=== PATIENT | female | born 1970 | race American Indian/Alaskan Native ===

== ENCOUNTER 2016-03-05 15:03 | Inpatient (IN) | payer OTHER ==
--- NOTE | 2016-03-05 17:26 | Emergency Department Report ---
Chief Complaint: Chest Pain Stated Complaint: CHEST PAIN,SOB/DIZZY Time Seen by Provider: 03/05/16 17:18 - HPI History of Present Illness: 45-year-old female comes in for complaint of chest pain shortness of bradycardia and blurred vision nausea and gone on for about 3 weeks is progressively getting worse. - Exam Vital Signs: Vital Signs 03/05/16 15:43 Temperature 98.3 F Pulse Rate 121 H Respiratory 20 Rate Blood Pressure 122/58 O2 Sat by Pulse 99 Oximetry Physical Exam: Patient alert and oriented 3 cardiovascular tachycardic S1-S2 respiratory she is clear to auscultation bilateral abdomen soft nontender nondistended MSE screening note: Focused history and physical exam performed. Due to findings the following was ordered: Chest pain protocol ordered patient be evaluated in the main ER ED Disposition for MSE Condition: Stable
[2016-03-05 18:25] LABS: Mean Corpuscular HGB Conc 25 % (30-34); Red Blood Count 2.75 M/mm3 (3.65-5.03); White Blood Count 5.2 K/mm3 (4.5-11.0)
[2016-03-05 18:37] LABS: Hemoglobin 3.8 gm/dl (10.1-14.3)
[2016-03-05 18:38] LABS: Hematocrit 14.9 % (30.3-42.9); Mean Corpuscular Hemoglobin 14 pg (28-32); Mean Corpuscular Volume 54 fl (79-97); Red Cell Distribution Width 23.2 % (13.2-15.2)
[2016-03-05 18:52] LABS: Alanine Aminotransferase 7 units/L (7-56); Albumin 3.8 g/dL (3.9-5); Albumin/Globulin Ratio 1.2 %; Alkaline Phosphatase 63 units/L (35-129); Anion Gap 17 mmol/L; BUN/Creatinine Ratio 16.66; Bilirubin,Total 0.3 mg/dL (0.1-1.2); Blood Urea Nitrogen 10 mg/dL (7-17); Calcium 8.3 mg/dL (8.4-10.2); Carbon Dioxide 22 mmol/L (22-30); Chloride 103.1 mmol/L (98-107); Creatine Kinase 51 units/L (30-135); Glucose 94 mg/dL (65-100); Lipase 21 units/L (13-60); Potassium 3.8 mmol/L (3.6-5.0); Sodium 138 mmol/L (137-145); Total Protein 7.1 g/dL (6.3-8.2)
[2016-03-05 18:58] LABS: Bilirubin,Direct < 0.2 mg/dL (0-0.2); Bilirubin,Indirect 0.1 mg/dL
[2016-03-05 18:59] LABS: Creatine Kinase MB < 1.0 ng/mL (0.0-4.0)
[2016-03-05] MEDS ORDERED: NACL 0.9% 500 ML 500 ML IV ONE ×2 (19:56→23:41)
[2016-03-05 20:03] LABS: Basophils % (Manual) 0 % (0.0-1.8); Blastocytes % (Manual) 0 %; Hypochromasia 3+
[2016-03-05 20:04] LABS: Elliptocytes 1+; Large Platelets 1+; Microcytosis 2+; Ovalocytes 1+
--- NOTE | 2016-03-05 20:04 | Emergency Department Report ---
ED General Adult HPI - General Chief complaint: Chest Pain Stated complaint: CHEST PAIN,SOB/DIZZY Time Seen by Provider: 03/05/16 17:18 Source: patient, RN notes reviewed, old records reviewed Mode of arrival: Ambulatory Limitations: No Limitations - History of Present Illness Initial comments: This is a 45-year-old female, previously unknown to me. Has a past medical history dysfunction uterine bleeding, possible fibroids, has required packed red blood cell transfusion in the past. The patient presents to the ER complaining of headache, chest pain, blurry vision, shortness of breath and weakness. Her symptoms are similar to prior episodes of symptomatic anemia. She has been vaginally bleeding for weeks. She is not . She has no hematemesis or bright red blood per rectum. She reports that she is not . -: Gradual, week(s) Location: head, chest Severity scale (0 -10): 7 Quality: aching Consistency: constant Improves with: rest Worsens with: movement Associated Symptoms: chest pain, loss of appetite, shortness of breath, weakness - Related Data Previous Rx's Medication Instructions Recorded Last Taken Type Ferrous Sulfate [Feosol 325 MG tab] 325 mg PO BID #60 tablet 03/16/15 Unknown Rx Allergies Allergy/AdvReac Type Severity Reaction Status Date / Time peanut Allergy Unknown Verified 12/29/14 18:57 soy Allergy Swelling Verified 03/15/15 23:27 squash Allergy Unknown Verified 12/29/14 18:57 zucchini Allergy Unknown Uncoded 12/29/14 18:57 ED Review of Systems ROS: Stated complaint: CHEST PAIN,SOB/DIZZY Other details as noted in HPI Constitutional: malaise, weakness Eyes: denies: vision change ENT: denies: epistaxis Respiratory: shortness of breath Cardiovascular: chest pain Gastrointestinal: denies: abdominal pain Genitourinary: abnormal menses Musculoskeletal: denies: back pain Skin: denies: lesions Neurological: weakness Psychiatric: as per HPI ED Past Medical Hx - Past Medical History Hx Hypertension: No Hx Heart Attack/AMI: No (Parents and one brother) Hx Congestive Heart Failure: No Hx Diabetes: No Hx Deep Vein Thrombosis: No Hx Pulmonary Embolism: No Hx GERD: No Hx Liver Disease: No Hx Renal Disease: No Hx Sickle Cell Disease: No Hx Arthritis: No Hx Headaches / Migraines: Yes Hx Seizures: No Hx Kidney Stones: No Hx Asthma: No Hx COPD: No Hx Tuberculosis: No Hx Dementia: No Hx HIV: No Additional medical history: Blood clots, HPV - Surgical History Hx Coronary Stent: No Hx Open Heart Surgery: No Hx Pacemaker: No Hx Internal Defibrillator: No Hx Cholecystectomy: No Hx Appendectomy: Yes Hx Breast Surgery: No Additional Surgical History: - Social History Smoking Status: Never Smoker Substance Use Type: None - Medications Home Medications: Home Medications Medication Instructions Recorded Confirmed Last Taken Type Ferrous Sulfate [Feosol 325 MG tab] 325 mg PO BID #60 tablet 03/16/15 03/05/16 Unknown Rx ED Physical Exam - General Limitations: No Limitations General appearance: alert, in no apparent distress - Head Head exam: Present: atraumatic, normocephalic - Eye Eye exam: Present: normal appearance, other (b/l pale conjunctiva) - ENT ENT exam: Present: normal exam, normal orophraynx, mucous membranes moist - Neck Neck exam: Present: normal inspection, full ROM. Absent: tenderness, meningismus - Respiratory Respiratory exam: Present: normal lung sounds bilaterally. Absent: respiratory distress, wheezes, rales, rhonchi, stridor, chest wall tenderness - Cardiovascular Cardiovascular Exam: Present: normal rhythm, tachycardia, normal heart sounds. Absent: bradycardia, systolic murmur, diastolic murmur, rubs, gallop - GI/Abdominal GI/Abdominal exam: Present: soft, normal bowel sounds. Absent: distended, tenderness, guarding, rebound, rigid, pulsatile mass - Extremities Exam Extremities exam: Present: normal inspection, full ROM, normal capillary refill. Absent: tenderness, pedal edema, joint swelling, calf tenderness - Back Exam Back exam: Present: normal inspection, full ROM. Absent: tenderness, CVA tenderness (R), CVA tenderness (L), muscle spasm, paraspinal tenderness, vertebral tenderness - Neurological Exam Neurological exam: Present: alert, oriented X3, other (Extraocular movements intact. Tongue midline. No facial droop. Facial sensation intact to light touch in the V1, V2, V3 distribution bilaterally. 5 and 5 strength in 4 extremities.. Sensation is intact to light touch in 4 extremities.). Absent: motor sensory deficit - Psychiatric Psychiatric exam: Present: anxious - Skin Skin exam: Present: warm, dry, intact, normal color. Absent: rash ED Course Vital Signs 03/05/16 03/05/16 03/05/16 15:43 16:52 19:04 Temperature 98.3 F Pulse Rate 121 H Respiratory 20 Rate Blood Pressure 122/58 109/55 109/55 O2 Sat by Pulse 99 84 Oximetry 03/05/16 03/05/16 03/05/16 19:45 20:00 21:00 Temperature 97.8 F Pulse Rate 92 H Respiratory 20 17 14 Rate Blood Pressure 126/62 120/57 O2 Sat by Pulse 100 100 99 Oximetry 03/05/16 03/05/16 03/05/16 21:28 21:43 22:13 Temperature 97.8 F 97.9 F 97.8 F Pulse Rate 94 H 96 H Respiratory 20 14 Rate Blood Pressure 140/73 121/65 O2 Sat by Pulse 100 100 Oximetry - Reevaluation(s) Reevaluation #1: 03/05/16 20:47 Differential diagnosis: Symptomatic anemia, acute coronary syndrome, dysfunctional uterine bleeding Assessment and plan: 45-year-old female with profound symptomatic anemia, chest discomfort, blurry vision, generalized weakness. She is tachycardic, and requires packed red blood cell transfusion. Case was discussed with the covering supervisor salvage, Dr. Anderson, who requested hospital/medical team admit the patient given history of chest pain, states he will follow as a consult. Patient is ordered for 3 units of packed red blood cells. Patient had a pelvic ultrasound last year, which demonstrated most likely fibroids. She is afebrile, not vomiting blood, not , I think that most likely reason for her symptoms is her profound symptomatically anemia. The case is discussed with the Hospital physician, Dr. Hancock, who graciously accepts the patient to her service. 03/06/16 02:39 ED Medical Decision Making - Lab Data Result diagrams: 03/05/16 17:45 03/05/16 19:42 Vital Signs 03/05/16 03/05/16 03/05/16 15:43 16:52 19:04 Temperature 98.3 F Pulse Rate 121 H Respiratory 20 Rate Blood Pressure 122/58 109/55 109/55 O2 Sat by Pulse 99 84 Oximetry 03/05/16 03/05/16 19:45 20:00 Temperature 97.8 F Pulse Rate 92 H Respiratory 20 18 Rate Blood Pressure 126/62 O2 Sat by Pulse 100 100 Oximetry Lab Results 03/05/16 03/05/16 03/05/16 Range/Units 17:45 17:45 19:42 WBC 5.2 (4.5-11.0) K/mm3 RBC 2.75 L (3.65-5.03) M/mm3 Hgb 3.8 L* (10.1-14.3) gm/dl Hct 14.9 L* (30.3-42.9) % MCV 54 L (79-97) fl MCH 14 L (28-32) pg MCHC 25 L (30-34) % RDW 23.2 H (13.2-15.2) % Plt Count 278 (140-440) K/mm3 Add Manual Diff Complete Total Counted 100 Seg Neuts % (Manual) 61.0 (40.0-70.0) % Band Neutrophils % 0 % Lymphocytes % (Manual) 31.0 (13.4-35.0) % Reactive Lymphs % (Man) 2.0 % Monocytes % (Manual) 5.0 (0.0-7.3) % Eosinophils % (Manual) 1.0 (0.0-4.3) % Basophils % (Manual) 0 (0.0-1.8) % Metamyelocytes % 0 % Myelocytes % 0 % Promyelocytes % 0 % Blast Cells % 0 % Nucleated RBC % 2.0 H (0.0-0.9) % Seg Neutrophils # Man 3.2 (1.8-7.7) K/mm3 Band Neutrophils # 0.0 K/mm3 Lymphocytes # (Manual) 1.6 (1.2-5.4) K/mm3 Abs React Lymphs (Man) 0.1 K/mm3 Monocytes # (Manual) 0.3 (0.0-0.8) K/mm3 Eosinophils # (Manual) 0.1 (0.0-0.4) K/mm3 Basophils # (Manual) 0.0 (0.0-0.1) K/mm3 Metamyelocytes # 0.0 K/mm3 Myelocytes # 0.0 K/mm3 Promyelocytes # 0.0 K/mm3 Blast Cells # 0.0 K/mm3 WBC Morphology Not Reportable Hypersegmented Neuts Not Reportable Hyposegmented Neuts Not Reportable Hypogranular Neuts Not Reportable Smudge Cells Not Reportable Toxic Granulation Not Reportable Toxic Vacuolation Not Reportable Dohle Bodies Not Reportable Pelger-Huet Anomaly Not Reportable Robert Rods Not Reportable Platelet Estimate Consistent w auto Clumped Platelets 1+ Plt Clumps, EDTA Not Reportable Large Platelets 1+ Giant Platelets Not Reportable Platelet Satelliting Not Reportable Plt Morphology Comment Not Reportable RBC Morphology Not Reportable Dimorphic RBCs Not Reportable Polychromasia Not Reportable Hypochromasia 3+ Poikilocytosis Not Reportable Anisocytosis Not Reportable Microcytosis 2+ Macrocytosis Not Reportable Spherocytes Not Reportable Pappenheimer Bodies Not Reportable Sickle Cells Not Reportable Target Cells Not Reportable Tear Drop Cells Rare Ovalocytes 1+ Helmet Cells Not Reportable [place] Bodies Not Reportable Mercer Rings Not Reportable [place] Cells Not Reportable Bite Cells Not Reportable Crenated Cell Not Reportable Elliptocytes 1+ Acanthocytes (Spur) Not Reportable Rouleaux Not Reportable Hemoglobin C Crystals Not Reportable Schistocytes Not Reportable Malaria parasites Not Reportable Beck Bodies Not Reportable Hem Pathologist Commnt No Sodium 138 140 (137-145) mmol/L Potassium 3.8 4.3 (3.6-5.0) mmol/L Chloride 103.1 103.9 (98-107) mmol/L Carbon Dioxide 22 19 L (22-30) mmol/L Anion Gap 17 21 mmol/L BUN 10 10 (7-17) mg/dL Creatinine 0.6 L 0.6 L (0.7-1.2) mg/dL Estimated GFR > 60 > 60 ml/min BUN/Creatinine Ratio 16.66 16.66 % Glucose 94 95 (65-100) mg/dL Calcium 8.3 L 8.3 L (8.4-10.2) mg/dL Total Bilirubin 0.3 (0.1-1.2) mg/dL Direct Bilirubin < 0.2 (0-0.2) mg/dL Indirect Bilirubin 0.1 mg/dL AST 12 (5-40) units/L ALT 7 (7-56) units/L Alkaline Phosphatase 63 (35-129) units/L Total Creatine Kinase 51 (30-135) units/L CK-MB (CK-2) < 1.0 (0.0-4.0) ng/mL CK-MB (CK-2) Rel Index 1.9 (0-4) Troponin T < 0.010 < 0.010 (0.00-0.029) ng/mL Total Protein 7.1 (6.3-8.2) g/dL Albumin 3.8 L (3.9-5) g/dL Albumin/Globulin Ratio 1.2 % Lipase 21 (13-60) units/L HCG, Quant (0-4) mIU/mL Blood Type Crossmatch 03/05/16 03/05/16 Range/Units 19:42 19:42 WBC (4.5-11.0) K/mm3 RBC (3.65-5.03) M/mm3 Hgb (10.1-14.3) gm/dl Hct (30.3-42.9) % MCV (79-97) fl MCH (28-32) pg MCHC (30-34) % RDW (13.2-15.2) % Plt Count (140-440) K/mm3 Add Manual Diff Total Counted Seg Neuts % (Manual) (40.0-70.0) % Band Neutrophils % % Lymphocytes % (Manual) (13.4-35.0) % Reactive Lymphs % (Man) % Monocytes % (Manual) (0.0-7.3) % Eosinophils % (Manual) (0.0-4.3) % Basophils % (Manual) (0.0-1.8) % Metamyelocytes % % Myelocytes % % Promyelocytes % % Blast Cells % % Nucleated RBC % (0.0-0.9) % Seg Neutrophils # Man (1.8-7.7) K/mm3 Band Neutrophils # K/mm3 Lymphocytes # (Manual) (1.2-5.4) K/mm3 Abs React Lymphs (Man) K/mm3 Monocytes # (Manual) (0.0-0.8) K/mm3 Eosinophils # (Manual) (0.0-0.4) K/mm3 Basophils # (Manual) (0.0-0.1) K/mm3 Metamyelocytes # K/mm3 Myelocytes # K/mm3 Promyelocytes # K/mm3 Blast Cells # K/mm3 WBC Morphology Hypersegmented Neuts Hyposegmented Neuts Hypogranular Neuts Smudge Cells Toxic Granulation Toxic Vacuolation Dohle Bodies Pelger-Huet Anomaly Robert Rods Platelet Estimate Clumped Platelets Plt Clumps, EDTA Large Platelets Giant Platelets Platelet Satelliting Plt Morphology Comment RBC Morphology Dimorphic RBCs Polychromasia Hypochromasia Poikilocytosis Anisocytosis Microcytosis Macrocytosis Spherocytes Pappenheimer Bodies Sickle Cells Target Cells Tear Drop Cells Ovalocytes Helmet Cells [place] Bodies Mercer Rings Maxime Cells Bite Cells Crenated Cell Elliptocytes Acanthocytes (Spur) Rouleaux Hemoglobin C Crystals Schistocytes Malaria parasites Beck Bodies Hem Pathologist Commnt Sodium (137-145) mmol/L Potassium (3.6-5.0) mmol/L Chloride (98-107) mmol/L Carbon Dioxide (22-30) mmol/L Anion Gap mmol/L BUN (7-17) mg/dL Creatinine (0.7-1.2) mg/dL Estimated GFR ml/min BUN/Creatinine Ratio % Glucose (65-100) mg/dL Calcium (8.4-10.2) mg/dL Total Bilirubin (0.1-1.2) mg/dL Direct Bilirubin (0-0.2) mg/dL Indirect Bilirubin mg/dL AST (5-40) units/L ALT (7-56) units/L Alkaline Phosphatase (35-129) units/L Total Creatine Kinase (30-135) units/L CK-MB (CK-2) (0.0-4.0) ng/mL CK-MB (CK-2) Rel Index (0-4) Troponin T (0.00-0.029) ng/mL Total Protein (6.3-8.2) g/dL Albumin (3.9-5) g/dL Albumin/Globulin Ratio % Lipase (13-60) units/L HCG, Quant < 2 (0-4) mIU/mL Blood Type O POSITIVE Crossmatch See Detail - EKG Data When compared to previous EKG there are: no significant change 03/05/16 20:49 Sinus tachycardia, 101 bpm, normal intervals, normal axis, not morphologically consistent with STEMI. When compared to old EKG from December 2014, numerous T-wave abnormalities have since resolved. I will defer to the inpatient team to further evaluate this. Troponins are negative 2. With severe symptomatic anemia, as demonstrated by laboratory studies, I think it is unlikely that the patient has concomitant acute coronary syndrome. - Radiology Data Radiology results: image reviewed interpreted by me: XR CHEST NEGATIVE Critical Care Time: Yes Critical care time in (mins) excluding proc time.: 35 Critical care attestation.: If time is entered above; I have spent that time in minutes in the direct care of this critically ill patient, excluding procedure time. Critical Care Time: Critical care time includes multiple bedside evaluations, interpretation of laboratory studies, previous radiology studies, time spent managing a critically ill patient with severe symptomatic anemia requiring packed red blood cell transfusion, consultation with gynecology, consultation with hospital medicine. This excludes procedure time. ED Disposition Clinical Impression: Anemia, Dysfunctional uterine bleeding Disposition: OP ADMITTED IP TO THIS HOSP Is pt being admited?: Yes Condition: Stable
[2016-03-05 20:05] LABS: Platelet Clumps 1+; Tear Drop Cells Rare
[2016-03-05 20:06] LABS: Diff Status Complete; Platelet Estimate Consistent w Auto
[2016-03-05 20:09] LABS: Platelet Count 278 K/mm3 (140-440)
[2016-03-05 20:28] LABS: BUN/Creatinine Ratio 16.66; Blood Urea Nitrogen 10 mg/dL (7-17); Calcium 8.3 mg/dL (8.4-10.2); Carbon Dioxide 19 mmol/L (22-30); Chloride 103.9 mmol/L (98-107); Glucose 95 mg/dL (65-100); Potassium 4.3 mmol/L (3.6-5.0); Sodium 140 mmol/L (137-145)
[2016-03-05 20:38] LABS: Anion Gap 21 mmol/L
[2016-03-05] MEDS ORDERED: BENADRYL IV PRN (21:44)
--- NOTE | 2016-03-05 21:45 | History and Physical Report ---
History of Present Illness Date of examination: 03/05/16 History of present illness: 45 year old obese patient with history of fibroid uterus , chronic anemia secondary to heavy menstrual periods comes to the emergency room with dizziness , blurry vision, shortness of breath, dyspnea on exertion. Currently having vaginal bleeding. She also complains of chest pain in the mid chest which she describes as a pressure like sensaton, intermittent for 1 hour, intensity 5/10, associted with left arm numbness. She cannot identify alleviating or exacerbating factors. symptoms started early this week.She has never had a stress test Patient denies palpitation, scough, abdominal pain, hematochezia, dysuria, frequency, focal weakness, dysarthria, fever chills, polydipsia polyuria, hot or cold intolerance, easy bruisability, or rash or bleeding from mucosal membrane, rhinorrhea, epistaxis, earache, tinnitus, blurry vision, eye discharge , anxiety, depression. Other review of systems negative Past Surgical History: appendectomy, Social history: denies: smoking, alcohol abuse, prescription drug abuse, IV drug use Family history: hypertension Medications and Allergies Allergies Allergy/AdvReac Type Severity Reaction Status Date / Time peanut Allergy Unknown Verified 12/29/14 18:57 soy Allergy Swelling Verified 03/15/15 23:27 squash Allergy Unknown Verified 12/29/14 18:57 zucchini Allergy Unknown Uncoded 12/29/14 18:57 Home Medications Medication Instructions Recorded Confirmed Last Taken Type Ferrous Sulfate [Feosol 325 MG tab] 325 mg PO BID #60 tablet 03/16/15 03/05/16 Unknown Rx Active Meds: Active Medications Diphenhydramine HCl (Benadryl) 25 mg IV Q6H PRN PRN Reason: puritus Exam - Physical Exam Narrative exam: Gen. appearance: Patient lying in bed, no apparent distress HEENT: Normocephalic, atraumatic, pupils equally round and reactive to light, extraocular movement intact, and no sclericterus,. No JVD or thyromegaly or nodule,neck supple, no carotid bruit ,mucous membranes moist, no exudate or erythema Heart: S1, S2, regular rate and rhythm Lungs: Clear to auscultation bilaterally, breathing comfortable Abdomen: Positive bowel sounds, nontender, nondistended, no organomegaly Extremity: No edema, cyanosis, clubbing Skin: No rash, nodules, warm, dry Neuro: Oriented 3, cranial nerves II-12 intact, speech is fluent, motor and sensory intact - Constitutional Vitals: Temp Pulse Resp BP Pulse Ox 97.8 F 92 H 14 120/57 99 03/05/16 21:28 03/05/16 20:00 03/05/16 21:00 03/05/16 21:00 03/05/16 21:00 Results - Labs CBC & Chem 7: 03/05/16 17:45 03/05/16 19:42 Labs: Abnormal lab results 03/05/16 03/05/16 03/05/16 Range/Units 17:45 17:45 19:42 RBC 2.75 L (3.65-5.03) M/mm3 Hgb 3.8 L* (10.1-14.3) gm/dl Hct 14.9 L* (30.3-42.9) % MCV 54 L (79-97) fl MCH 14 L (28-32) pg MCHC 25 L (30-34) % RDW 23.2 H (13.2-15.2) % Nucleated RBC % 2.0 H (0.0-0.9) % Carbon Dioxide 19 L (22-30) mmol/L Creatinine 0.6 L 0.6 L (0.7-1.2) mg/dL Calcium 8.3 L 8.3 L (8.4-10.2) mg/dL Albumin 3.8 L (3.9-5) g/dL Crossmatch 03/05/16 Range/Units 19:42 RBC (3.65-5.03) M/mm3 Hgb (10.1-14.3) gm/dl Hct (30.3-42.9) % MCV (79-97) fl MCH (28-32) pg MCHC (30-34) % RDW (13.2-15.2) % Nucleated RBC % (0.0-0.9) % Carbon Dioxide (22-30) mmol/L Creatinine (0.7-1.2) mg/dL Calcium (8.4-10.2) mg/dL Albumin (3.9-5) g/dL Crossmatch See Detail - Imaging and Cardiology EKG: image reviewed Chest x-ray: image reviewed Assessment and Plan Severe Symptomatic Anemia due to menorrhagia Chest pain Admit to medicine transfuse prbc, premedicate with tylenol Obtain stress test, check cardiac enzymes DVT prphalaxis with SCD
[2016-03-05] MEDS ORDERED: MILK OF MAGNESIA PO PRN (23:12)
[2016-03-05] MEDS ORDERED: AMBIEN PO PRN (23:12)
[2016-03-05] MEDS ORDERED: ZOFRAN IV PRN (23:12)
[2016-03-05] MEDS ORDERED: DULCOLAX PR PRN (23:12)
[2016-03-05] MEDS ORDERED: MORPHINE IV PRN (23:12)
[2016-03-05] MEDS ORDERED: BENADRYL PO ONE (23:48)
[2016-03-06] MEDS ORDERED: BENADRYL PO ONE (00:03)
[2016-03-06 00:04] LABS: Creatine Kinase 49 units/L (30-135)
[2016-03-06 00:16] LABS: Creatine Kinase MB < 1.0 ng/mL (0.0-4.0)
[2016-03-06 04:36] LABS: Mucus,Urine FEW /HPF
[2016-03-06 04:43] LABS: Bilirubin,Urine NEG (Negative); Blood,Urine MOD (Negative); Ketones,Urine NEG (Negative); Leukocyte Esterase,Urine NEG (Negative); Nitrite,Urine NEG (Negative); Protein,Urine <15 mg/dL mg/dL (Negative)
--- NOTE | 2016-03-06 05:38 | Admit Criteria Form ---
Admission Criteria Documentation: ANEMIA, IRON DEFICIENCY OR UNSPECIFIED Clinical Indications for Inpatient Care (Place 'X' for any and all applicable criteria): Admission is indicated for ANY ONE of the following(1)(2)(3)(4)(5)(6)(7): [X] I. Inpatient admission required rather than observation care (Also use Anemia, Iron Deficiency or Unspecified: Observation Care guideline as appropriate) because of ANY ONE of the following: [] a) Hemodynamic instability that is severe or persistent [] b) Active bleeding that cannot be rapidly controlled [X] c) CVS symptoms (i.e., dyspnea, chest pain, heart failure) that are severe or persistent [] d) Neurologic symptoms (i.e., cognitive impairment, recurrent syncope or near syncope) that are severe or persistent [] e) Cardiac arrhythmias of immediate concern [] f) Acute peripheral ischemia (e.g., pulseless, cool, mottled, or cyanotic extremity) [] g) High-risk low platelet count [] h) Acute renal failure [] i) Ongoing transfusion for blood loss (greater than 2 units) [] j) IV fluid to replace significant ongoing (eg, >24 hours) losses (> 3 L/m2 per day) [] k) Pulmonary artery catheter monitoring [] l) Supplemental oxygen or respiratory treatments for over 24 hours that are performable only in acute inpatient setting [] m) Immediate inpatient surgery [] n) Other condition, treatment or monitoring requiring inpatient admission [] II Active massive hemorrhage [] III. Active hemolysis with rapidly progressive anemia [A](6) Extended stay beyond goal length of stay may be needed for (17)(18) []a) Diagnosed cause of anemia requiring longer hospitalization (eg, active GI bleeding, immune hemolysis requiring electrophoresis, complications of malignancy requiring acute care []b) Continued emergent anemia indicators (23) []c) Transfusion reactions []d) Associated leukopenia or thrombocytopenia needing inpatient care []e) Active comorbidities (eg, renal failure, heart failure) The original [facility] Care Guidelines content created by [facility] Care Guidelines has been revised. The portions of the content which have been revised are identified through the use of italic text or in bold. [facility] Guidelines has neither reviewed nor approved the modified material. All other unmodified content is copyright [facility] Care Guidelines. Please see references footnoted in the original [facility] edition 2016 Admission Criteria Met: Yes
[2016-03-06] MEDS ORDERED: LEXISCAN IV ONE ×2 (08:16→08:30)
--- NOTE | 2016-03-06 09:05 | Consultation ---
History of Present Illness Consult date: 03/06/16 Reason for consult: menorrhagia, pelvic mass History of present illness: Asked to see this 45-year-old admitted from the emergency room with symptomatic anemia; her hemoglobin was ~4 and she is being transfused. Patient is known to me from prior admisission ~ 1 year ago. She has known history of fibroid uterus and had a discussion with her CORPORATE TREASURY ANALYST 6 years ago about a hysterectomy; she unfortunately lost her insurance and has not been able to follow-up. She has history of presenting to [facility] in December of this year; it appears she did not follow up. Patient claims it has been difficult contacting the clinic again. In the ED, she complained of chest pain and shortness of breath. She was admitted to the hospitalist service and she is being worked up for ACS Patient seen lying in her room stable, she currently has no vaginal bleeding with her pad completely dry. Past History Past Medical History: other (see HPI) Past Surgical History: appendectomy, section (24 years ago then successful ) SUPERVISOR GROWER History: fibroids, other (see HPI). denies: gonorrhea, HIV Family/Genetic History: cancer (father with prostate cancer, no family history of ovarian, breast or endometrial cancer) Social history: single. denies: smoking, alcohol abuse, prescription drug abuse , IV drug use Past History Past Medical History: no pertinent history (appendectomy, section (24 years ago then successful )) Past Surgical History: appendectomy, section, other (appendectomy, section (24 years ago then successful )) SUPERVISOR GROWER History: fibroids. denies: gonorrhea, hepatitis B, hepatitis C, HIV, syphilis Social history: single. denies: smoking, alcohol abuse, prescription drug abuse Medications and Allergies Allergies Allergy/AdvReac Type Severity Reaction Status Date / Time peanut Allergy Unknown Verified 12/29/14 18:57 soy Allergy Swelling Verified 03/15/15 23:27 squash Allergy Unknown Verified 12/29/14 18:57 zucchini Allergy Unknown Uncoded 12/29/14 18:57 Home Medications Medication Instructions Recorded Confirmed Last Taken Type Ferrous Sulfate [Feosol 325 MG tab] 325 mg PO BID #60 tablet 03/16/15 03/05/16 Unknown Rx Active Meds: Active Medications Bisacodyl (Dulcolax) 10 mg MS QDAY PRN PRN Reason: Constipation unrelieved by MOM Diphenhydramine HCl (Benadryl) 25 mg IV Q6H PRN PRN Reason: puritus Sodium Chloride (Nacl 0.9% 500 Ml) 500 mls @ 50 mls/hr IV ONCE ONE Stop: 03/06/16 09:40 Last Admin: 03/05/16 23:59 Dose: 50 mls/hr Magnesium Hydroxide (Milk Of Magnesia) 30 ml PO Q4H PRN PRN Reason: Constipation Morphine Sulfate (Morphine) 2 mg IV Q4H PRN PRN Reason: Pain, Moderate (4-6) Last Admin: 03/06/16 00:18 Dose: 2 mg Ondansetron HCl (Zofran) 4 mg IV Q8H PRN PRN Reason: N/V unrelieved by Reglan Zolpidem Tartrate (Ambien) 5 mg PO QHS PRN PRN Reason: Insomnia Review of Systems Genitourinary: no vaginal bleeding - Vital Signs Vital signs: Vital Signs Temp Pulse Resp BP Pulse Ox 98.3 F 121 H 20 122/58 99 03/05/16 15:43 03/05/16 15:43 03/05/16 15:43 03/05/16 15:43 03/05/16 15:43 Temp Pulse Resp BP Pulse Ox 98.3 F 79 20 146/64 100 03/06/16 07:47 03/06/16 07:47 03/06/16 07:47 03/06/16 07:47 03/06/16 07:47 - Physical Exam Abdomen: Positive: normal appearance, soft, distention. Negative: tenderness, guarding, rigidity Genitourinary (Female): Positive: normal external genitalia, other (No VB) Uterus: Positive: enlarged. Negative: tender Results Result Diagrams: 03/05/16 17:45 03/05/16 19:42 All other labs normal. Assessment and Plan A: AUB/HMB-L -Currently not bleeding P: -Patient with known fibroids, previously discussed a hysterectomy -Pelvic sono obtained -She is aware of need to follow up outpatient for workup including Pap and EMB -Thank you for this consult, please call with questions - Patient Problems (1) Abnormal uterine bleeding (AUB) Current Visit: No Status: Acute (2) Fibroids Current Visit: No Status: Chronic Qualifiers: Uterine leiomyoma location: unspecified location Qualified Code(s): D25.9 - Leiomyoma of uterus, unspecified (3) Chest pain Current Visit: Yes Status: Acute (4) Anemia Current Visit: Yes Status: Chronic Qualifiers: Other causes of anemia: acute posthemorrhagic
--- NOTE | 2016-03-06 09:26 | XRay Report ---
AP CHEST : 03/05/16 20:53 CLINICAL: Chest pain. COMPARISON:None FINDINGS: Normal heart and pulmonary vessels. The lungs are normally expanded and clear. The bones and soft tissues are unremarkable. IMPRESSION: Normal chest.
[2016-03-06 12:39] LABS: Hematocrit 21.9 % (30.3-42.9); Hemoglobin 6.5 gm/dl (10.1-14.3); Mean Corpuscular HGB Conc 30 % (30-34); Red Blood Count 3.32 M/mm3 (3.65-5.03); White Blood Count 4.4 K/mm3 (4.5-11.0)
[2016-03-06 12:44] LABS: Mean Corpuscular Hemoglobin 20 pg (28-32); Mean Corpuscular Volume 66 fl (79-97)
[2016-03-06 12:45] LABS: Platelet Count 146 K/mm3 (140-440)
[2016-03-06 13:01] LABS: Anion Gap 18 mmol/L; BUN/Creatinine Ratio 8.33; Blood Urea Nitrogen 5 mg/dL (7-17); Calcium 8.3 mg/dL (8.4-10.2); Carbon Dioxide 21 mmol/L (22-30); Chloride 104.3 mmol/L (98-107); Glucose 87 mg/dL (65-100); Potassium 4.4 mmol/L (3.6-5.0); Sodium 139 mmol/L (137-145)
[2016-03-06 13:38] LABS: Creatine Kinase 46 units/L (30-135)
[2016-03-06 13:49] LABS: Creatine Kinase MB < 1.0 ng/mL (0.0-4.0)
[2016-03-06] MEDS ORDERED: NACL 0.9% 500 ML 500 ML IV ONE (13:52)
[2016-03-06 14:26] LABS: Basophils % (Manual) 0 % (0.0-1.8); Blastocytes % (Manual) 0 %; Eosinophils % (Manual) 0 % (0.0-4.3)
[2016-03-06 14:27] LABS: Anisocytosis 1+; Hypochromasia 2+; Microcytosis 1+
[2016-03-06 14:28] LABS: Diff Status Complete; Platelet Estimate Consistent w Auto; Schistocytes Rare
--- NOTE | 2016-03-06 15:10 | Progress Note ---
Assessment and Plan Assessment and plan: Severe symptomatic anemia secondary to uterine bleeding - Transfused with 2 units of blood last hemoglobin is 6.5 - We will transfuse her with 2 more units of blood - We will monitor H&H closely - Chest pain and shortness of breath is likely from severe anemia and resolved after transfusion Uterine bleeding - Gynecology consult appreciated Prophylaxis SCD Disposition Plan: we'll discharge her if her hemoglobin is stable tomorrow History Interval history: I have seen and evaluated this patient this morning. Her chest pain and shortness of breath resolved. Hospitalist Physical - Physical exam Narrative exam: Not in cardiopulmonary distress. The patient appeared well nourished and normally developed. Vital signs as documented. Head exam is unremarkable. pale conjunctiva, anicteric sclera Neck is without jugular venous distension, thyromegaly, or carotid bruits. Lungs are clear to auscultation. Cardiac exam reveals regular rate and Rhythm. First and second heart sounds normal. No murmurs, rubs or gallops. Abdominal exam reveals normal bowel sounds, no masses, no organomegaly and no aortic enlargement. Extremities are nonedematous and both femoral and pedal pulses are normal. PRESIDING JUDGE: Alert and oriented 3. No focal weakness. - Constitutional Vitals: Temp Pulse Resp BP Pulse Ox 98.3 F 92 H 20 126/68 100 03/06/16 07:47 03/06/16 10:02 03/06/16 07:47 03/06/16 10:02 03/06/16 07:47 Results - Labs CBC & Chem 7: 03/06/16 11:35 03/06/16 11:38 Labs: Laboratory Last Values WBC 4.4 K/mm3 (4.5-11.0) L 03/06/16 11:35 RBC 3.32 M/mm3 (3.65-5.03) L 03/06/16 11:35 Hgb 6.5 gm/dl (10.1-14.3) L 03/06/16 11:35 Hct 21.9 % (30.3-42.9) L D 03/06/16 11:35 MCV 66 fl (79-97) L D 03/06/16 11:35 MCH 20 pg (28-32) L 03/06/16 11:35 MCHC 30 % (30-34) 03/06/16 11:35 RDW 36.0 % (13.2-15.2) H 03/06/16 11:35 Plt Count 146 K/mm3 (140-440) 03/06/16 11:35 Add Manual Diff Complete 03/06/16 11:35 Total Counted 100 03/06/16 11:35 Seg Neuts % (Manual) 58.0 % (40.0-70.0) 03/06/16 11:35 Band Neutrophils % 0 % 03/06/16 11:35 Lymphocytes % (Manual) 29.0 % (13.4-35.0) 03/06/16 11:35 Reactive Lymphs % (Man) 0 % 03/06/16 11:35 Monocytes % (Manual) 13.0 % (0.0-7.3) H 03/06/16 11:35 Eosinophils % (Manual) 0 % (0.0-4.3) 03/06/16 11:35 Basophils % (Manual) 0 % (0.0-1.8) 03/06/16 11:35 Metamyelocytes % 0 % 03/06/16 11:35 Myelocytes % 0 % 03/06/16 11:35 Promyelocytes % 0 % 03/06/16 11:35 Blast Cells % 0 % 03/06/16 11:35 Nucleated RBC % Not Reportable 03/06/16 11:35 Seg Neutrophils # Man 2.6 K/mm3 (1.8-7.7) 03/06/16 11:35 Band Neutrophils # 0.0 K/mm3 03/06/16 11:35 Lymphocytes # (Manual) 1.3 K/mm3 (1.2-5.4) 03/06/16 11:35 Abs React Lymphs (Man) 0.0 K/mm3 03/06/16 11:35 Monocytes # (Manual) 0.6 K/mm3 (0.0-0.8) 03/06/16 11:35 Eosinophils # (Manual) 0.0 K/mm3 (0.0-0.4) 03/06/16 11:35 Basophils # (Manual) 0.0 K/mm3 (0.0-0.1) 03/06/16 11:35 Metamyelocytes # 0.0 K/mm3 03/06/16 11:35 Myelocytes # 0.0 K/mm3 03/06/16 11:35 Promyelocytes # 0.0 K/mm3 03/06/16 11:35 Blast Cells # 0.0 K/mm3 03/06/16 11:35 WBC Morphology Not Reportable 03/06/16 11:35 Hypersegmented Neuts Not Reportable 03/06/16 11:35 Hyposegmented Neuts Not Reportable 03/06/16 11:35 Hypogranular Neuts Not Reportable 03/06/16 11:35 Smudge Cells Not Reportable 03/06/16 11:35 Toxic Granulation Not Reportable 03/06/16 11:35 Toxic Vacuolation Not Reportable 03/06/16 11:35 Dohle Bodies Not Reportable 03/06/16 11:35 Pelger-Huet Anomaly Not Reportable 03/06/16 11:35 Robert Rods Not Reportable 03/06/16 11:35 Platelet Estimate Consistent w auto 03/06/16 11:35 Clumped Platelets Not Reportable 03/06/16 11:35 Plt Clumps, EDTA Not Reportable 03/06/16 11:35 Large Platelets Not Reportable 03/06/16 11:35 Giant Platelets Not Reportable 03/06/16 11:35 Platelet Satelliting Not Reportable 03/06/16 11:35 Plt Morphology Comment Not Reportable 03/06/16 11:35 RBC Morphology Not Reportable 03/06/16 11:35 Dimorphic RBCs Not Reportable 03/06/16 11:35 Polychromasia Not Reportable 03/06/16 11:35 Hypochromasia 2+ 03/06/16 11:35 Poikilocytosis Not Reportable 03/06/16 11:35 Anisocytosis 1+ 03/06/16 11:35 Microcytosis 1+ 03/06/16 11:35 Macrocytosis Not Reportable 03/06/16 11:35 Spherocytes Not Reportable 03/06/16 11:35 Pappenheimer Bodies Not Reportable 03/06/16 11:35 Sickle Cells Not Reportable 03/06/16 11:35 Target Cells Not Reportable 03/06/16 11:35 Tear Drop Cells Not Reportable 03/06/16 11:35 Ovalocytes Not Reportable 03/06/16 11:35 Helmet Cells Not Reportable 03/06/16 11:35 [place] Bodies Not Reportable 03/06/16 11:35 [place] Rings Not Reportable 03/06/16 11:35 Maxime Cells Not Reportable 03/06/16 11:35 Bite Cells Not Reportable 03/06/16 11:35 Crenated Cell Not Reportable 03/06/16 11:35 Elliptocytes Not Reportable 03/06/16 11:35 Acanthocytes (Spur) Not Reportable 03/06/16 11:35 Rouleaux Not Reportable 03/06/16 11:35 Hemoglobin C Crystals Not Reportable 03/06/16 11:35 Schistocytes Rare 03/06/16 11:35 Malaria parasites Not Reportable 03/06/16 11:35 Beck Bodies Not Reportable 03/06/16 11:35 Hem Pathologist Commnt No 03/06/16 11:35 Sodium 139 mmol/L (137-145) 03/06/16 11:38 Potassium 4.4 mmol/L (3.6-5.0) 03/06/16 11:38 Chloride 104.3 mmol/L (98-107) 03/06/16 11:38 Carbon Dioxide 21 mmol/L (22-30) L 03/06/16 11:38 Anion Gap 18 mmol/L 03/06/16 11:38 BUN 5 mg/dL (7-17) L 03/06/16 11:38 Creatinine 0.6 mg/dL (0.7-1.2) L 03/06/16 11:38 Estimated GFR > 60 ml/min 03/06/16 11:38 BUN/Creatinine Ratio 8.33 % 03/06/16 11:38 Glucose 87 mg/dL (65-100) 03/06/16 11:38 Calcium 8.3 mg/dL (8.4-10.2) L 03/06/16 11:38 Total Bilirubin 0.3 mg/dL (0.1-1.2) 03/05/16 17:45 Direct Bilirubin < 0.2 mg/dL (0-0.2) 03/05/16 17:45 Indirect Bilirubin 0.1 mg/dL 03/05/16 17:45 AST 12 units/L (5-40) 03/05/16 17:45 ALT 7 units/L (7-56) 03/05/16 17:45 Alkaline Phosphatase 63 units/L (35-129) 03/05/16 17:45 Total Creatine Kinase 46 units/L (30-135) 03/06/16 11:38 CK-MB (CK-2) < 1.0 ng/mL (0.0-4.0) 03/06/16 11:38 CK-MB (CK-2) Rel Index 2.1 (0-4) 03/06/16 11:38 Troponin T < 0.010 ng/mL (0.00-0.029) 03/06/16 11:38 Total Protein 7.1 g/dL (6.3-8.2) 03/05/16 17:45 Albumin 3.8 g/dL (3.9-5) L 03/05/16 17:45 Albumin/Globulin Ratio 1.2 % 03/05/16 17:45 Lipase 21 units/L (13-60) 03/05/16 17:45 HCG, Quant < 2 mIU/mL (0-4) 03/05/16 19:42 Urine Color Yellow (Yellow) 03/06/16 03:45 Urine Turbidity Clear (Clear) 03/06/16 03:45 Urine pH 6.0 (5.0-7.0) 03/06/16 03:45 Ur Specific [place] 1.019 (1.003-1.030) 03/06/16 03:45 Urine Protein <15 mg/dl mg/dL (Negative) 03/06/16 03:45 Urine Glucose (UA) Neg mg/dL (Negative) 03/06/16 03:45 Urine Ketones Neg mg/dL (Negative) 03/06/16 03:45 Urine Blood Mod (Negative) 03/06/16 03:45 Urine Nitrite Neg (Negative) 03/06/16 03:45 Ur Reducing Substances Not Reportable 03/06/16 03:45 Urine Bilirubin Neg (Negative) 03/06/16 03:45 Urine Ictotest Not Reportable 03/06/16 03:45 Urine Urobilinogen 2.0 mg/dL (<2.0) 03/06/16 03:45 Ur Leukocyte Esterase Neg (Negative) 03/06/16 03:45 Urine WBC (Auto) 3.0 /HPF (0.0-6.0) 03/06/16 03:45 Urine RBC (Auto) 118.0 /HPF (0.0-6.0) 03/06/16 03:45 U Epithel Cells (Auto) 1.0 /HPF (0-13.0) 03/06/16 03:45 Urine Mucus Few /HPF 03/06/16 03:45 Blood Type O POSITIVE 03/05/16 19:42 Antibody Screen Negative 03/05/16 19:42 Crossmatch See Detail 03/05/16 19:42 Hemoglobin is 6.5 after 3 units of blood transfusion
[2016-03-07 10:15] LABS: Hematocrit 25.8 % (30.3-42.9); Hemoglobin 8.1 gm/dl (10.1-14.3); Mean Corpuscular HGB Conc 32 % (30-34); Mean Corpuscular Volume 71 fl (79-97); Platelet Count 216 K/mm3 (140-440); Red Blood Count 3.66 M/mm3 (3.65-5.03); White Blood Count 5.2 K/mm3 (4.5-11.0)
[2016-03-07 10:20] LABS: Mean Corpuscular Hemoglobin 22 pg (28-32); Red Cell Distribution Width 36.6 % (13.2-15.2)
[2016-03-07 10:41] LABS: Anion Gap 16 mmol/L; BUN/Creatinine Ratio 11.25; Blood Urea Nitrogen 9 mg/dL (7-17); Calcium 8.1 mg/dL (8.4-10.2); Carbon Dioxide 21 mmol/L (22-30); Chloride 106.8 mmol/L (98-107); Glucose 96 mg/dL (65-100); Potassium 4.1 mmol/L (3.6-5.0); Sodium 140 mmol/L (137-145)
--- NOTE | 2016-03-07 10:41 | Ultrasound Report ---
Pelvic and transvaginal sonography: History: Abnormal uterine bleeding. Findings: Uterus measures 17 x 8 x 10 cm. Single fibroid anterior aspect of the fundus of the uterus measures 6 x 4 x 5 cm. Endometrial thickness 12 mm. No fluid in the endometrium. Right ovary not visualized. Left ovary 6.5 x 3.5 x 4.4 cm. Cyst in the left ovary measures 6 cm. No free intraperitoneal fluid. Impression: Single fibroid uterus. Septated cyst left ovary. Normal blood flow.
[2016-03-07 11:07] LABS: Basophils % (Manual) 0 % (0.0-1.8); Blastocytes % (Manual) 0 %; Eosinophils % (Manual) 0 % (0.0-4.3)
[2016-03-07 11:08] LABS: Anisocytosis 1+; Microcytosis 1+
[2016-03-07 11:09] LABS: Diff Status Complete; Hypochromasia 1+; Platelet Estimate Consistent w Auto
[2016-03-07] MEDS ORDERED: DILAUDID IV PRN (11:16)
--- NOTE | 2016-03-07 11:44 | Discharge Summary ---
Providers - Providers Date of Admission: 03/05/16 21:39 Date of discharge: 03/07/16 Attending physician: AIDA MA MD Primary care physician: EMIL HINOJOSA MD Hospitalization Reason for admission: Symptomatic anemia Condition: Stable Pertinent studies: Vaginal U/S Hospital course: Patient was admitted for symptomatic anemia recommended to vaginal bleeding, patient was admitted previously with the same problem and she was referred to OB /JANITOR for hysterectomy but hysterectomy was not done because of insurance issue. She was evaluated by WOOD MACHINE CARVER at this admission. Patient was transfused with 5 units of blood and her morning hemoglobin was 8.3. Patient is asymptomatic. She said she has insurance now and will see Dr Isrrael BHANDARI as an o/p for her vaginal bleeding. Patient has iron tablets at home. Patient was stable at the time of discharge. Disposition: DISCHARGED TO HOME OR SELFCARE Time spent for discharge: 31 minutes - Discharge Diagnoses (1) Chest pain Status: Acute (2) Dysfunctional uterine bleeding Status: Acute (3) Anemia Status: Chronic Qualifiers: Other causes of anemia: acute posthemorrhagic (4) Abnormal uterine bleeding (AUB) Status: Acute (5) Dizziness Status: Acute (6) History of menorrhagia Status: Acute Core Measure Documentation - Palliative Care Palliative Care/ Comfort Measures: Not Applicable - Core Measures Any of the following diagnoses?: none Exam - Physical Exam Narrative exam: Not in cardiopulmonary distress. The patient appeared well nourished and normally developed. Vital signs as documented. Head exam is unremarkable. pale conjunctiva, anicteric sclera Neck is without jugular venous distension, thyromegaly, or carotid bruits. Lungs are clear to auscultation. Cardiac exam reveals regular rate and Rhythm. First and second heart sounds normal. No murmurs, rubs or gallops. Abdominal exam reveals normal bowel sounds, no masses, no organomegaly and no aortic enlargement. Extremities are nonedematous and both femoral and pedal pulses are normal. JOB PRESS OPERATOR: Alert and oriented 3. No focal weakness. - Constitutional Vitals: Temp Pulse Resp BP Pulse Ox 98.0 F 78 18 142/80 96 03/07/16 08:25 03/07/16 08:25 03/07/16 08:25 03/07/16 08:25 03/07/16 08:25 Plan Activity: no restrictions Diet: regular Follow up with: EMIL HINOJOSA MD [Primary Care Provider] - 7 Days MIKE GODWIN MD [Staff Physician] - 3 Days
[2016-03-07 12:02] VITALS: BP 112/56
--- NOTE | 2016-03-08 13:03 | Treadmill Report ---
THALLIUM STRESS TEST LEFT VENTRICLE: Left ventricular chamber size is within normal. Perfusion study demonstrates mild breast attenuation artifact, otherwise homogeneous uptake of the tracer in all segments. No significant perfusion defects identified. Gated analysis demonstrates normal left ventricular systolic function, ejection fraction 61%. CONCLUSION: Normal myocardial perfusion study. JOB# [id number] CA/NTS
== END 2016-03-07 13:35 | disposition home or self-care (01) | DRG 760 ==
LOC: ED 15:03 → 3A 21:39
PROVIDERS: ADMIT Internal Medicine; ATTEND Internal Medicine
PROC: 30233N1 Transfusion of Nonautologous Red Blood Cells into Peripheral Vein, Percutaneous Approach (ICD-10-PCS; principal; 2016-03-05)
DX: N93.9 Abnormal uterine and vaginal bleeding, unspecified (principal); D62 Acute posthemorrhagic anemia; D25.9 Leiomyoma of uterus, unspecified; R07.9 Chest pain, unspecified; G43.909 Migraine, unspecified, not intractable, without status migrainosus; N92.0 Excessive and frequent menstruation with regular cycle; Z88.8 Allergy status to other drugs, medicaments and biological substances; Z91.010 Allergy to peanuts; Z91.018 Allergy to other foods; Z79.899 Other long term (current) drug therapy; Z82.49 Family history of ischemic heart disease and other diseases of the circulatory system; Z90.49 Acquired absence of other specified parts of digestive tract; Z98.890 Other specified postprocedural states
CPT/HCPCS: 36415; 71010; 76830; 76856; 78452; 80048; 80074; 81001; 82550; 82553; 83690; 84484; 84702; 85007; 85025; 86850; 86900; 86901; 86920; 93005; 93010; 93017; A9502; J2270; J2785; J7040; P9016

== ENCOUNTER 2016-08-05 18:58 | Emergency (ER) | payer OTHER ==
[2016-08-05 19:31] VITALS: BP 142/80
[2016-08-05 20:03] LABS: Hematocrit 25.7 % (30.3-42.9); Hemoglobin 7.7 gm/dl (10.1-14.3); Mean Corpuscular HGB Conc 30 % (30-34); Mean Corpuscular Volume 72 fl (79-97); Platelet Count 372 K/mm3 (140-440); Red Blood Count 3.59 M/mm3 (3.65-5.03); White Blood Count 6.9 K/mm3 (4.5-11.0)
[2016-08-05 20:07] LABS: Mean Corpuscular Hemoglobin 22 pg (28-32); Red Cell Distribution Width 25.6 % (13.2-15.2)
[2016-08-05 20:20] LABS: Anion Gap 16 mmol/L; BUN/Creatinine Ratio 14.28; Blood Urea Nitrogen 10 mg/dL (7-17); Calcium 8.5 mg/dL (8.4-10.2); Carbon Dioxide 26 mmol/L (22-30); Chloride 101.4 mmol/L (98-107); Glucose 92 mg/dL (65-100); Potassium 4.7 mmol/L (3.6-5.0); Sodium 139 mmol/L (137-145)
[2016-08-05 20:47] LABS: Blastocytes % (Manual) 0 %
[2016-08-05 20:48] LABS: Anisocytosis 2+; Microcytosis 2+
[2016-08-05 20:52] LABS: Poikilocytosis 1+
[2016-08-05 20:53] LABS: Diff Status Complete; Hypochromasia 2+; Ovalocytes 1+; Platelet Estimate Consistent w Auto; Polychromasia Few
[2016-08-05 23:02] LABS: Bilirubin,Urine NEG (Negative); Blood,Urine NEG (Negative); Ketones,Urine NEG (Negative); Leukocyte Esterase,Urine NEG (Negative); Nitrite,Urine NEG (Negative); Protein,Urine <15 mg/dL mg/dL (Negative); Urobilinogen,Urine < 2.0 mg/dL (<2.0); WBC,Urine < 1.0 /HPF (0.0-6.0)
[2016-08-06] MEDS ORDERED: MORPHINE IV ONE (00:59)
--- NOTE | 2016-08-06 01:03 | Emergency Department Report ---
ED Abdominal Pain HPI - General Chief Complaint: Wound/Laceration Stated Complaint: POST OP BLEEDING FROM INCISION Time Seen by Provider: 08/06/16 00:43 Source: patient Mode of arrival: Ambulatory Limitations: No Limitations - History of Present Illness Initial Comments: Pt is a 45 yr old female who presents to the ED c/o abdominal wound drainage. Pt reports she had a hysterectomy by Dr Kojo Arcos 07/30/16 here at [facility] and noticed today a moderate amount of bloody drainage from her abdomen. Pt reports steri strips are somewhat in place and her wound has opened. Pt called Dr Arcos and was instructed to return to the ED. Otherwise patient denies any fevers, chills PINA, NVD, SOB, increased abdominal pain, redness around her incision, dysuria, hematuria, back pain, trauma, falls, travel, or sick contacts Severity scale (0 -10): 5 - Related Data Home Medications Medication Instructions Recorded Confirmed Last Taken Acetaminophen [Tylenol] 650 mg PO Q6HR PRN 07/23/16 07/23/16 Unknown Ibuprofen [Motrin] 400 mg PO Q6H PRN 07/23/16 07/30/16 07/28/16 Previous Rx's Medication Instructions Recorded Last Taken Type Ferrous Sulfate [Feosol 325 MG tab] 325 mg PO BID #60 tablet 08/01/16 Unknown Rx HYDROcodone/APAP 5-325 [Mitchells 1 each PO Q4H PRN #30 tablet 08/01/16 Unknown Rx 5-325 mg TAB] Ibuprofen [Motrin] 800 mg PO Q8HR PRN #30 tablet 08/01/16 Unknown Rx Allergies Allergy/AdvReac Type Severity Reaction Status Date / Time peanut Allergy Anaphylaxis Verified 07/23/16 12:57 soy Allergy Anaphylaxis Verified 07/23/16 12:57 corn AdvReac Itching Verified 07/23/16 12:57 gluten AdvReac Itching Verified 07/23/16 12:57 squash AdvReac Itching Verified 07/23/16 12:57 zucchini AdvReac Itching Uncoded 07/23/16 12:57 ED Review of Systems ROS: Stated complaint: POST OP BLEEDING FROM INCISION Other details as noted in HPI Comment: All other systems reviewed and negative ED Past Medical Hx - Past Medical History Hx Hypertension: No Hx Heart Attack/AMI: (Parents and one brother) Hx Congestive Heart Failure: No Hx Diabetes: No Hx Deep Vein Thrombosis: No Hx Pulmonary Embolism: No Hx GERD: No Hx Liver Disease: No Hx Sickle Cell Disease: No Hx Arthritis: No Hx Asthma: No Hx COPD: No Hx Tuberculosis: No Hx HIV: No Additional medical history: FIBROIDS. HPV - Surgical History Hx Coronary Stent: No Hx Open Heart Surgery: No Hx Pacemaker: No Hx Internal Defibrillator: No Hx Cholecystectomy: No Hx Appendectomy: Yes Hx Breast Surgery: No Additional Surgical History: , Hysterectomy - Social History Smoking Status: Never Smoker Substance Use Type: None - Medications Home Medications: Home Medications Medication Instructions Recorded Confirmed Last Taken Type Acetaminophen [Tylenol] 650 mg PO Q6HR PRN 07/23/16 07/23/16 Unknown History Ibuprofen [Motrin] 400 mg PO Q6H PRN 07/23/16 07/30/16 07/28/16 History Ferrous Sulfate [Feosol 325 MG tab] 325 mg PO BID #60 tablet 08/01/16 Unknown Rx HYDROcodone/APAP 5-325 [Mitchells 1 each PO Q4H PRN #30 tablet 08/01/16 Unknown Rx 5-325 mg TAB] Ibuprofen [Motrin] 800 mg PO Q8HR PRN #30 tablet 08/01/16 Unknown Rx ED Physical Exam - General Limitations: No Limitations General appearance: alert, in no apparent distress - Head Head exam: Present: atraumatic, normocephalic - Eye Eye exam: Present: normal appearance - ENT ENT exam: Present: mucous membranes moist - Neck Neck exam: Present: normal inspection - Respiratory Respiratory exam: Present: normal lung sounds bilaterally. Absent: respiratory distress - Cardiovascular Cardiovascular Exam: Present: regular rate, normal rhythm. Absent: systolic murmur, diastolic murmur, rubs, gallop - GI/Abdominal GI/Abdominal exam: Present: soft, tenderness (mildly tenderness around the incision), normal bowel sounds, other (horizontal surgical scar, steri strips removed, small central area of superfical dehiscence, no drainage noted, no evidence of cellulitis noted). Absent: distended, guarding, rebound, rigid - Rectal Rectal exam: Present: deferred - External exam: Present: normal external exam - Extremities Exam Extremities exam: Present: normal inspection - Back Exam Back exam: Present: normal inspection - Neurological Exam Neurological exam: Present: alert, oriented X3 - Psychiatric Psychiatric exam: Present: normal affect, normal mood - Skin Skin exam: Present: warm, dry, intact, normal color. Absent: rash ED Course Vital Signs 08/05/16 19:23 Temperature 98.2 F Pulse Rate 80 Respiratory 18 Rate Blood Pressure 142/80 Blood Pressure 142/80 [Left] O2 Sat by Pulse 100 Oximetry ED Medical Decision Making - Lab Data Result diagrams: 08/05/16 19:48 08/05/16 19:48 - Medical Decision Making Called to bedside at 0129: Pt wishes to leave AMA. She understands that I wanted to do a further workup to ensure she did not have an intraabdominal abscess or infection. Pt wants to see her PMD tomorrow. I instructed her to return to the ED if her pain worsens, drainage increases, the wound completely opens, or if she has fevers. Pt understood Critical care attestation.: If time is entered above; I have spent that time in minutes in the direct care of this critically ill patient, excluding procedure time. ED Disposition Clinical Impression: Surgical wound breakdown Disposition: LEFT AGAINST MED ADVICE Is pt being admited?: No Condition: Stable Instructions: Wound Dehiscence (ED) Referrals: PRIMARY CAREMD [Primary Care Provider] - 3-5 Days MIKE ARCOS MD [Staff Physician] - 3-5 Days Forms: AMA Form
[2016-08-06] MEDS ORDERED: NACL ONE (01:44)
== END 2016-08-06 01:43 | disposition left against medical advice (07) ==
LOC: ED 18:58
DX: T81.4XXA Infection following a procedure, initial encounter (principal); Z90.710 Acquired absence of both cervix and uterus; Y83.8 Other surgical procedures as the cause of abnormal reaction of the patient, or of later complication, without mention of misadventure at the time of the procedure
CPT/HCPCS: 36415; 80048; 81001; 85007; 85025; 99283; J2270